=== PATIENT | female | born 1985 | race Caucasian/White ===

== ENCOUNTER 2023-02-18 09:00 | Emergency (ER) | payer OTHER, SELFPAY ==
--- NOTE | ~2023-02-18 | XR_ITS ---
XR lumbar spine 2-3V 02/18/2023 09:36 Indication: Low back pain Procedure: 3 views lumbar spine Comparison: No prior studies for comparison. Findings: Vertebral body heights are maintained. Pedicles intact. Sacral foramen are symmetric. No fr acture, subluxation or spondylolisthesis. No significant disc narrowing. There is a sclerotic lesion of the right ilium, partially visualized. Impression: 1: No significant abnormality of the lumbar spine. 2: Sclerotic lesion of the right ilium which most likely represents a benign bone island, although m etastatic disease is not excluded. Consider correlation with prior outside imaging to assess stabilit y. Alternatively, further evaluation with bone scan if no prior imaging is available. Reviewed, dictated and finalized at location L. Impression: 1: No significant abnormality of the lumbar spine. 2: Sclerotic lesion of the right ilium which most likely represents a benign b one island, although metastatic disease is not excluded. Consider correlation w ith prior outside imaging to assess stability. Alternatively, further evaluatio n with bone scan if no prior imaging is available.
[2023-02-18 09:07] VITALS: BP 105/79; PULSE 80; RESP 16; TEMP 36.8; O2SAT 100
--- NOTE | 2023-02-18 09:13 | ED.BACK ---
HPI - Back Pain/Injury General Chief Complaint: Back Pain/Injury Stated Complaint: lower back pain Time Seen by Provider: 02/18/23 09:08 Source: patient and RN notes reviewed Mode of arrival: ambulatory History of Present Illness HPI Narrative: Patient is a 37-year-old female with complaints of low back pain that has been present for the past couple weeks. Patient states that she was moving heavy furniture down stairs 2 weeks ago, and started noticing the low back pain a day or two after. Patient reports constant aching that worsens with ambulation, movement, and positioning. She denies radiation of the pain. Denies numbness; sensation is intact. Denies dysfunction of bladder or bowel. States that she has been taking Ibuprofen and icing at home with minimal relief. Related Data Allergies Allergy/AdvReac Type Severity Reaction Status Date / Time No Known Allergies Allergy Unverified 02/18/23 09:03 Review of Systems Review of Systems: CONSTITUTIONAL: Denies fever, chills, or sweats. EYES: Denies visual changes, redness, or discharge. ENT: Denies otalgia and sore throat CARDIOVASCULAR: Denies chest pain, palpitations, or edema. RESPIRATORY: Denies cough or dyspnea. GASTROINTESTINAL: Denies abdominal pain, nausea, vomiting, or diarrhea. GENITOURINARY: Denies dysuria or hematuria. SKIN: Denies rash or itching. MUSCULOSKELETAL: Reports back pain. Denies joint pain, or myalgia. NEUROLOGIC: Denies headache, numbness, or weakness. Pertinent positives per HPI. PMFSH Comments At the time of my signature, I reviewed and agree with the nursing past medical, surgical, social, and family history. There is no relevant family history pertinent to the patient complaint. Exam Narrative: GENERAL: This is a well-nourished, well-developed patient, in no apparent distress. HEAD: normocephalic, atraumatic. EYES: PERRL. Sclera clear/white. Vision is grossly intact. EARS: External ears normal, auditory canals clear and without drainage, TMs normal without perforation. Hearing grossly intact. NOSE: External nose normal with no obvious nasal discharge, nares without redness, no rhinorrhea. THROAT: Mucous membranes moist, posterior pharynx clear. NECK: Neck supple, non-tender without lymphadenopathy, masses or thyromegaly. CARDIOVASCULAR: Regular rate and rhythm without murmurs, gallops, or rubs. RESPIRATORY: Clear to auscultation. Breath sounds equal bilaterally. No wheezes, rales, or rhonchi. GASTROINTESTINAL: Abdomen soft, non-tender, nondistended. Bowel sounds are active. No hepato-splenomegaly, or palpable masses. No guarding. SKIN: warm, intact with no suspicious lesions or rash, good texture and turgor. NEURO: awake, alert, and oriented to person, place and time. There were no obvious focal neurologic abnormalities. BACK: Tenderness in the paraspinous muscles in the lumbar area. No tenderness over the spinous processes of the lumbar vertebrae. LEGS: Normal strength including dorsi-flexion and plantar flexion of the feet. Negative bilateral straight leg raising, normal and symmetrical knee and ankle reflexes. Course Course Level of Care: Express Care Visit Vital Signs Vital signs: Vital Signs Temperature 98.3 F 02/18/23 09:07 Pulse Rate 80 02/18/23 09:07 Respiratory Rate 16 02/18/23 09:07 Blood Pressure 105/79 02/18/23 09:07 Pulse Oximetry 100 02/18/23 09:07 Temperature 98.3 F 02/18/23 09:07 Pulse Rate 80 02/18/23 09:07 Respiratory Rate 16 02/18/23 09:07 Blood Pressure 105/79 02/18/23 09:07 Pulse Oximetry 100 02/18/23 09:07 Reviewed MDM - Back Pain/Injury MDM Narrative Medical decision making narrative: Use the RICE method at home. May take ibuprofen and/or Tylenol if needed. If symptoms persist in 1 week after conservative treatment, follow-up with specialist. X-ray impression reviewed with patient. Patient was given Medrol Dosepak for acute low back pain. She has no alarming symptoms, suc
== END 2023-02-18 10:17 | disposition home or self-care (01) ==
PROVIDERS: Emergency Provider Nurse Practitioner
DX: S39.012A Strain of muscle, fascia and tendon of lower back, initial encounter (principal); W10.9XXA Fall (on) (from) unspecified stairs and steps, initial encounter
CPT/HCPCS: 72100; 99203; G0463

== ENCOUNTER 2023-04-20 12:19 | Emergency (ER) | payer OTHER, SELFPAY ==
--- NOTE | ~2023-04-20 | XR_ITS ---
EXAM: XR abdomen obstructive series DATE: 04/20/2023 15:14 HISTORY: Constipation X 4 DAYS, NO AB PAIN . COMPARISON: X-ray L-spine 02/18/2023. FINDINGS: Clear lung bases. Normal bowel gas pattern. No organomegaly. No abnormal abdominal calcifi cation. No acute osseous finding. 4.1 cm sclerotic lesion in the right iliac wing. Regional soft tiss ues normal for age. IMPRESSION: No radiographic evidence of pneumoperitoneum, obstruction, or ileus. 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 Reviewed, dictated and finalized at location K. IMPRESSION: No radiographic evidence of pneumoperitoneum, obstruction, or ileus. 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
--- NOTE | ~2023-04-20 | XR_ITS ---
EXAMINATION: XR chest 1V DATE: 04/20/2023 13:31 INDICATION: Syncope. TECHNIQUE: A single frontal view of the chest was obtained. COMPARISON: None. FINDINGS: The chest demonstrates clear lungs without pneumonia, pleural effusion, or pneumothorax. Th e heart size is normal. IMPRESSION: 1. No acute cardiopulmonary disease. Reviewed, dictated and finalized at location A.
--- NOTE | ~2023-04-20 | CT_ITS ---
EXAMINATION: CT brain wo con DATE: 04/20/2023 13:27 INDICATION: Syncope. TECHNIQUE: Computed tomography (CT) of the head was performed without intravenous contrast. The mA wa s adjusted according to patient size. Iterative reconstruction technique was employed. The dose-lengt h product was 605.33 mGy-cm. COMPARISON: None FINDINGS: There is no intracranial hemorrhage, acute infarction, or abnormal intracranial mass lesion . The ventricles are normal in size. There is mild mucosal thickening in the ethmoid sinuses. The mas toid air cells are normal. IMPRESSION: 1. Normal brain. Reviewed, dictated and finalized at location A. IMPRESSION: 1. Normal brain.
--- NOTE | ~2023-04-20 | CT_ITS ---
EXAMINATION: CT lumbar spine wo con DATE: 04/20/2023 15:08 INDICATION: fall/CT coccyx . TECHNIQUE: Computed tomography (CT) of the lumbar spine was performed without intravenous contrast. A utomated exposure control and iterative reconstruction technique were employed. The dose-length produ ct was 894.64 mGy-cm. COMPARISON: X-ray L-spine 02/18/2023. FINDINGS: 5 nonrib-bearing lumbar-type vertebral bodies. Pedicles intact. Normal vertebral body align ment. Vertebral body heights preserved. Disc space narrowing at L3-4 through L5-S1. Vacuum phenomenon at L5-S1. 9 mm subarticular protrusion at L4-5 narrowing the left lateral recess. Moderate diffuse d isc bulges at L3-4 and L5-S1. Normal facets and posterior elements. Oblique fracture of the distal sa cral element, with 4 mm anterior displacement. No severe central canal or neural foraminal narrowing. IMPRESSION: No acute fracture or traumatic malalignment in the lumbar spine. Mildly displaced oblique fracture of the tip of the sacrum. 9 mm L4-5 disc protrusion, narrowing the left lateral recess. Severe degenerative disease at L5-S1. Reviewed, dictated and finalized at location K.
[2023-04-20 12:22] VITALS: BP 114/73; PULSE 88; RESP 18; TEMP 36.2; O2SAT 100
--- NOTE | 2023-04-20 12:50 | ED.SYNCOPE ---
HPI - Syncope General Chief Complaint: Syncope Stated Complaint: syncope while having bowel movement Time Seen by Provider: 04/20/23 12:50 Source: patient Mode of arrival: ambulatory Limitations: no limitations History of Present Illness HPI narrative: 37 years old white female slipped going down the steps on a carpeted steps down 12-15 steps 3 days ago, complaining of tailbone pain. Last bowel movement 3 days ago. This morning was trying to strain down to have a bowel movement causing severe tailbone pain, was screaming then blacked out. She lives by herself. No weakness. Drove herself to the emergency room. Did not see any physician for the fall 3 days ago. She denies head injury or other injuries. Her main complaint is tailbone pain and constipation. Patient is telling me that she was able to dig stool out of her rectum this morning using her finger. Related Data Home Medications Medication Instructions Recorded Confirmed hydroxyzine HCl 25 mg tablet mg PO BID 04/20/23 Allergies Allergy/AdvReac Type Severity Reaction Status Date / Time No Known Allergies Allergy Verified 04/20/23 12:59 Review of Systems Review of Systems: All systems reviewed & are unremarkable except as noted in HPI and below Exam Narrative: General appearance: Well-developed, well-nourished Skin: Normal color Head: Normocephalic, nontraumatic Eyes: Clear conjunctiva ENT: Oropharynx normal, ears normal, nose normal Neck: Supple, nontender Chest and respiratory: Airway patent, no respiratory distress, no accessory muscle use Heart: Regular rate/rhythm Abdomen: Soft, nontender, no organomegaly, quiet bowel sounds Vascular: Normal peripheral pulses, normal capillary refill. Musculoskeletal: Mild to moderate tenderness at the tailbone, no bruises, no swelling. Neurologic: Alert and oriented ?3, [employer] is normal as tested, no gross motor deficit Course Reevaluation(s) Reevaluation #1: Patient still in pain, after having Dilaudid, Toradol and Zofran IV. 0.5 mg of Dilaudid ordered prior to discharge. Date: 04/20/23 Time: 16:57 Vital Signs Vital signs: Vital Signs Temperature 36.2 C L 04/20/23 12:22 Pulse Rate 88 04/20/23 12:22 Respiratory Rate 18 04/20/23 12:22 Blood Pressure 114/73 04/20/23 12:22 Pulse Oximetry 100 04/20/23 12:22 Oxygen Delivery Room Air 04/20/23 12:22 Temperature 36.2 C L 04/20/23 12:22 Pulse Rate 88 04/20/23 12:22 Respiratory Rate 18 04/20/23 12:22 Blood Pressure 114/73 04/20/23 12:22 Pulse Oximetry 100 04/20/23 12:22 Oxygen Delivery Room Air 04/20/23 12:22 MDM - Syncope MDM Narrative Medical decision making narrative: Patient fell down steps at home, tailbone pain, 3 days ago, got worse today because was not able to have a bowel movement. Patient somehow used her fingers and was able to manage. While trying to to push down pain got severely worse and blacked out. Patient lives alone, UNwitnessed. Work-up today showed sacral fracture, patient received 0.5 mg twice, Toradol 30 mg IV once and Zofran 4 mg IV with mild to moderate improvement. Blood work-up today showed no acute abnormalities, clean urine, patient had a copy of the CT scan report and x-ray report which showed that she have a 1 cm sclerotic right iliac wing lesion and bone scan is recommended to rule out the possibility of metastasis. Patient understood and the planning to follow-up with her family physician/orthopedic for further evaluation. Patient was offered to stay in the hospital overnight for pain management, she declined Differential Diagnosis Differential diagnosis: Likely other (Syncope secondary to pain, coccyx
[2023-04-20 13:17] LABS: Basophils Absolute Auto 0.1 K/mm3 (0.0-0.1); Eosinophils Absolute Auto 0.3 K/mm3 (0-0.3); Eosinophils Percent Auto 3.4 % (0-4.4); Hematocrit 41.7 % (37.0-47.0); Hemoglobin 13.8 g/dL (12.0-15.0); Immature Granulocyte Absolute 0.02 K/mm3 (0.00-0.031); Immature Granulocyte Percent A 0.2 % (0-0.5); Lymphocytes Absolute Auto 1.88 K/mm3 (0.9-3.2); Mean Corpuscular HGB Conc 33.1 g/dl (32-36); Mean Corpuscular Hemoglobin 29.4 pg (26-34); Mean Corpuscular Volume 88.9 fl (80-100); Mean Platelet Volume 9.6 fl (7.4-10.4); Monocytes Absolute Auto 0.6 K/mm3 (0.1-0.6); Monocytes Percent Auto 6.8 % (2.6-8.5); Neutrophils Absolute Auto 6.4 K/mm3 (1.3-6.7); Neutrophils Percent Auto 68.6 % (45.5-73.1); Platelet Count Result 323 k/mm3 (150-375); Red Blood Count 4.69 M/mm3 (4.2-5.4); Red Cell Distribution Width 13.4 % (11.5-14.5); White Blood Count 9.4 K/mm3 (4.5-10.0)
[2023-04-20 13:36] LABS: Prothrombin Time 13.6 Seconds (11.1-14.7)
[2023-04-20 13:38] LABS: Partial Thromboplastin Time 35.4 SECONDS (22.3-36.8)
[2023-04-20 13:55] LABS: Alanine Aminotransferase 27 U/L (6-35); Albumin Level 4.6 g/dL (3.5-5.1); Alkaline Phosphatase 44 U/L (38-126); Anion Gap 7 mmol/L (8-16); Aspartate Amino Transferase 38 U/L (14-36); Bilirubin,Total 0.5 mg/dL (0.2-1.3); Blood Urea Nitrogen 9 mg/dL (7-17); Calcium 9.1 mg/dL (8.4-10.2); Carbon Dioxide 26 mmol/L (22-30); Chloride 105 mmol/L (98-107); Estimated CRCL calculation 110 ml/min; Estimated Glomerular Filt Rate > 60; Glucose 81 mg/dL (65-110); Magnesium 1.9 mg/dL (1.6-2.3); Potassium 4.5 mmol/L (3.4-5.0); Sodium 138 mmol/L (137-145)
[2023-04-20 13:57] LABS: Troponin I < 0.012 ng/mL (0.000-0.034)
[2023-04-20] MEDS: HYDROmorphone HCL INJ (*CRX) 1 MG/ML SYR 0.5 MG IV PUSH ×2 (14:43→17:20)
[2023-04-20] MEDS: KETOROLAC 30 MG/ML VIAL (*BKC) IV PUSH (14:43)
[2023-04-20] MEDS: ONDANSETRON INJ 4 MG/2 ML VIAL IV PUSH (14:43)
[2023-04-20 14:56] LABS: Appearance Urine Cloudy (Clear); Bacteria Urine Rare /hpf; Bilirubin Urine Negative (Negative); Blood Urine Trace (Negative); Color Urine Yellow (Yellow); Glucose Urine UA Negative (Negative); Ketones Urine Negative (Negative); Leukocyte Esterase Ur Negative LEU/UL (Negative); Nitrate Urine Negative (Negative); Non Pathogenic Casts 0-2; Protein Urine Negative (Negative); RBC Urine 0-2 /hpf (0-2); Specific Grav Ur 1.011 (1.001-1.035); Squamous Epithelial Cell Urine Moderate /hpf (Few); Urobilinogen Urine 0.2 mg/dL (<2.0); pH Urine 5.5 (5.0-9.0)
[2023-04-20 14:59] LABS: Add Urine Microscopic? YES
== END 2023-04-20 17:35 | disposition home or self-care (01) ==
PROVIDERS: Emergency Provider Emergency Medicine; PCP Family Medicine
DX: S32.19XA Other fracture of sacrum, initial encounter for closed fracture (principal); M89.9 Disorder of bone, unspecified; M51.37 Other intervertebral disc degeneration, lumbosacral region; W10.9XXA Fall (on) (from) unspecified stairs and steps, initial encounter
CPT/HCPCS: 36415; 70450; 71045; 72131; 74019; 80053; 81001; 81025; 83735; 84484; 85025; 85610; 85730; 87086; 96374; 96375; 96376; 99284; J1170; J1885; J2405

== ENCOUNTER 2024-04-08 17:35 | Emergency (ER) | payer OTHER, SELFPAY ==
[2024-04-08 17:44] VITALS: BP 142/90; PULSE 122; RESP 24; TEMP 36.9; O2SAT 100
[2024-04-08 18:57] LABS: Basophils Absolute Auto 0.1 K/mm3 (0.0-0.1); Eosinophils Absolute Auto 0.1 K/mm3 (0-0.3); Eosinophils Percent Auto 0.8 % (0-4.4); Hematocrit 45.5 % (37.0-47.0); Hemoglobin 15.1 g/dL (12.0-15.0); Immature Granulocyte Absolute 0.03 K/mm3 (0.00-0.031); Immature Granulocyte Percent A 0.3 % (0-0.5); Lymphocytes Absolute Auto 3.06 K/mm3 (0.9-3.2); Lymphocytes Percent Auto 30.9 % (18.3-44.2); Mean Corpuscular HGB Conc 33.2 g/dl (32-36); Mean Corpuscular Hemoglobin 29.6 pg (26-34); Mean Corpuscular Volume 89.2 fl (80-100); Mean Platelet Volume 9.3 fl (7.4-10.4); Monocytes Absolute Auto 0.7 K/mm3 (0.1-0.6); Monocytes Percent Auto 7.1 % (2.6-8.5); Neutrophils Absolute Auto 5.9 K/mm3 (1.3-6.7); Neutrophils Percent Auto 59.9 % (45.5-73.1); Platelet Count Result 372 k/mm3 (150-375); White Blood Count 9.9 K/mm3 (4.5-10.0)
[2024-04-08 19:05] LABS: Appearance Urine Cloudy (Clear); Bacteria Urine 4+ /hpf; Bilirubin Urine Negative (Negative); Blood Urine 1+ (Negative); Color Urine Dark Yellow (Yellow); Glucose Urine UA Negative (Negative); Ketones Urine 1+ mg/dL (Negative); Leukocyte Esterase Ur Negative LEU/UL (Negative); Mucus Urine Present /lpf; Need Manual Microscopic Reviewed; Nitrate Urine Negative (Negative); Non Pathogenic Casts 0-2; Protein Urine Trace mg/dL (Negative); Specific Grav Ur 1.027 (1.001-1.035); Squamous Epithelial Cell Urine Many /hpf (Few)
[2024-04-08 19:11] LABS: Alanine Aminotransferase 22 U/L (6-35); Albumin Level 5.2 g/dL (3.5-5.1); Alkaline Phosphatase 70 U/L (38-126); Anion Gap 9 mmol/L (4-12); Aspartate Amino Transferase 25 U/L (14-36); Bilirubin,Total 0.6 mg/dL (0.2-1.3); Blood Urea Nitrogen 8 mg/dL (7-17); Carbon Dioxide 25 mmol/L (22-30); Chloride 107 mmol/L (98-107); Estimated CRCL calculation 95 ml/min; Estimated Glomerular Filt Rate > 60; Glucose 97 mg/dL (65-110); Potassium 3.5 mmol/L (3.4-5.0); Sodium 141 mmol/L (137-145)
[2024-04-08 19:12] LABS: Ethanol < 10 mg/dL (<10)
[2024-04-08 19:17] LABS: Add Urine Microscopic? YES
--- NOTE | 2024-04-08 19:25 | PC.NURSE ---
patient states their partner committed suicide 12 years ago and strongly states they would never kill themselves. 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 they state that sometimes they wish they were , but do not have a plan to do it and would never follow through with it. patients biggest concerns with coming to the ER today are for feeling overwhelmed with caring for child, panic attacks, and being unable to get into PCP's office until mid-May. patient started Bupropion a month ago and recently was prescribed ADD medication.
[2024-04-08 19:34] LABS: Influenza A QL RT-PCR Negative (Negative); Influenza B QL RT-PCR Negative (Negative); RSV RNA, RT-PCR Negative (Negative); SARS-CoV-2 RNA PCR Negative (Negative)
[2024-04-08 19:34] LABS: Amphetamine Screen Urine Positive (Negative); Barbiturate Screen Urine Negative (Negative); Benzodiazepines Screen Urine Negative (Negative); Cannabinoid Screen Urine Positive (Negative); Cocaine Screen Urine Negative (Negative); Methadone Screen Urine Negative (Negative); Opiate Screen Urine Negative (Negative); Phencyclidine Screen Urine Negative (Negative)
--- NOTE | 2024-04-08 19:59 | ED.PSYCH ---
HPI - Psych General Chief Complaint: Psychiatric Symptoms Stated Complaint: panic attacks Time Seen by Provider: 04/08/24 18:37 Source: patient Mode of arrival: ambulatory Limitations: no limitations History of Present Illness HPI Narrative: Patient is a 38 y/o female who presents to the ED with c/o anxiety. Patient reports having increased anxiety today. 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 States her daughter is very loud and disruptive at times and had a prolonged tantrum today. she became very anxious and felt herself going into a panic attack. She states she began crying and could not stop. She does have history of depression, anxiety, ADHD, late diagnosed autism. She is on bupropion and ADHD medication. She does not currently see a psychiatrist. She tried contacting her PCP today and was unable to make an appointment until May. Patient denies any suicidal ideation, but states she has had thoughts of feeling stuck and not knowing what she is looking forward to in life in the past. She denied having any of these thoughts today. She denies any active or recent plan for suicide. She notes her committed suicide 12 years ago and she states she would never go through with that. Related Data Home Medications Medication Instructions Recorded Confirmed hydroxyzine HCl 25 mg tablet mg PO BID 04/20/23 Allergies Allergy/AdvReac Type Severity Reaction Status Date / Time No Known Allergies Allergy Verified 04/08/24 17:52 Review of Systems Review of Systems: CONSTITUTIONAL: Denies fever, chills, or sweats. ENT: Denies rhinorrhea, congestion, sore throat. CARDIOVASCULAR: Denies chest pain, palpitations, or edema. RESPIRATORY: Denies cough or dyspnea. GASTROINTESTINAL: Denies abdominal pain, nausea, vomiting, or diarrhea. PSYCHIATRIC: See HPI All systems reviewed & are unremarkable except as noted in HPI and below PMFSH Social History Social History Substance use type: marijuana Exam Narrative: GENERAL: Anxious appearing, well-nourished, non-toxic, in no acute distress. HEAD: Normocephalic, atraumatic. RESPIRATORY: Airway patent, respirations nonlabored. Clear to auscultation bilaterally, no rales, rhonchi, wheezing. CARDIOVASCULAR: Regular rate and rhythm without murmurs, rubs, or gallops. MUSCULOSKELETAL: Moves all extremities. No gross deformities. SKIN: Warm, dry, normal color. NEURO: A&O X3. Speech clear. Cranial nerves II-XII grossly intact. Steady gait. No ataxic movements. PSYCHIATRIC: Very anxious appearing, fidgeting, unable to sit still, tearful. Course Vital Signs Vital signs: Vital Signs Temperature 98.4 F 04/08/24 17:44 Pulse Rate 122 H 04/08/24 17:44 Respiratory Rate 24 H 04/08/24 17:44 Blood Pressure 142/90 H 04/08/24 17:44 Pulse Oximetry 100 04/08/24 17:44 Oxygen Delivery Room Air 04/08/24 17:44 Temperature 98.4 F 04/08/24 17:44 Pulse Rate 77 04/08/24 23:43 Respiratory Rate 16 04/08/24 23:43 Blood Pressure 127/76 04/08/24 23:43 Pulse Oximetry 100 04/08/24 23:43 Oxygen Delivery Room Air 04/08/24 17:44 MDM - Psych MDM Narrative Medical decision making narrative: Patient presented to ED with of severe anxiety, panic attack today, unable to control anxiety at home. Denies any suicidal ideation or plan. There was possible report of suicidal thoughts per family, however patient adamantly denies any suicidal ideation. States she just wants help controlling her anxiety. Several family and life stressors. She does not currently have a psychiatrist. Is on bupropion for depression. ED psych workup was initiated. Laboratory studies are unremarkable. Urine with small amount of white blood cells. Patient denies any active urinary symptoms. Will send for culture and defer treatment to culture results. Patient is medically chasity
[2024-04-08 20:06] LABS: Thyroid Stimulating Hormone Reflex 0.994 uIU/mL (0.465-4.68)
[2024-04-08] MEDS: LORazepam INJ (*CRX) 2 MG/ML VIAL 0.5 MG IM (20:12)
--- NOTE | 2024-04-08 23:36 | PC.NURSE ---
care and report given to OCTAVIA Hernandez. all questions answered.
[2024-04-08 23:43] VITALS: BP 127/76; PULSE 77; RESP 16; O2SAT 100
== END 2024-04-09 00:06 | disposition home or self-care (01) ==
PROVIDERS: Physician Assistant; Emergency Provider Physician Assistant; PCP Family Medicine
DX: F41.9 Anxiety disorder, unspecified (principal); F32.A Depression, unspecified; Z79.899 Other long term (current) drug therapy; Z20.822 Contact with and (suspected) exposure to COVID-19
CPT/HCPCS: 36415; 80053; 80307; 81001; 81003; 81025; 84443; 85025; 87086; 87637; 96372; 99284; J2060

== ENCOUNTER 2025-09-28 21:05 | Emergency (ER) | payer OTHER, SELFPAY ==
[2025-09-28 21:27] VITALS: BP 113/64; PULSE 94; RESP 23; TEMP 36.9; O2SAT 94
--- NOTE | 2025-09-28 23:47 | PC.NURSE ---
pt called. No response
== END 2025-09-29 01:06 | disposition left against medical advice (07) ==
PROVIDERS: PCP Family Medicine
DX: R51.9 Headache, unspecified (principal)
CPT/HCPCS: 99199